=== PATIENT | male | born 1945 | race Caucasian/White ===

== ENCOUNTER 2021-11-02 17:53 | Emergency (ER) | payer OTHER ==
[~2021-11-02] VITALS: Ht 185.4 cm; Wt 95.5 kg
[2021-11-02 18:12] VITALS: BP 168/96
[2021-11-02] MEDS ORDERED: PRED20TA PO (18:15)
[2021-11-02] MEDS ORDERED: ALBU6.7H9 INH (18:15)
[2021-11-02] MEDS ORDERED: NIRM1TAB PO (18:15)
[2021-11-02] MEDS ORDERED: BUDE180A INH (18:15)
== END 2021-11-02 18:32 | disposition home or self-care (01) ==
LOC: ER 17:55
DX: U07.1 COVID-19 (principal); E11.9 Type 2 diabetes mellitus without complications; Z79.899 Other long term (current) drug therapy
CPT/HCPCS: 71046; 99283